=== PATIENT | female | born 2000 | race American Indian/Alaskan Native ===

== ENCOUNTER 2021-12-20 04:28 | Emergency (ER) | payer SELFPAY ==
[2021-12-20 04:55] VITALS: BP 127/79
[2021-12-20] MEDS ORDERED: ERYTHROMYCIN 5 MG/1 GM OPHTH OINT OU ONE (06:09)
[2021-12-20] MEDS ORDERED: MINERAL OIL Light (Sterile) 10 ML VIAL TP ONE (06:09)
--- NOTE | 2021-12-20 06:22 | Emergency Department Report ---
ED Eye Problem HPI - General Chief complaint: Eye Problems Stated complaint: ALLERGIC REACTION TO EYELASH GLUE Time Seen by Provider: 12/20/21 06:08 Source: patient Mode of arrival: Ambulatory Limitations: No Limitations - History of Present Illness Initial comments: Patient presents with bilateral eye irritation after having fake eyelash extensions applied. She had these applied several days ago. Her eyes have become red and itchy. They have been swollen. They have been draining a thick yellowish material. She is complaining of bilateral eye pain. Patient has no blurry vision or double vision. She is no cough or congestion. There is no shortness of breath. She is never had symptoms like this before. She has never had fake eyelashes before. Patient has no other complaint. She has no other trauma. She has not been on any medication to help her symptoms. She tried using some baby oil to dissolve the glue. This did not work. - Related Data Previous Rx's Medication Instructions Recorded Last Taken Type Erythromycin [Erythromycin Ophth 2 cm OU QID #3.5 tube 12/20/21 Unknown Rx Oint] Ibuprofen [Motrin] 600 mg PO Q8H PRN #20 tab 12/20/21 Unknown Rx Allergies Allergy/AdvReac Type Severity Reaction Status Date / Time No Known Allergies Allergy Verified 12/20/21 04:54 ED Review of Systems ROS: Stated complaint: ALLERGIC REACTION TO EYELASH GLUE Other details as noted in HPI Comment: All other systems reviewed and negative Constitutional: denies: fever Eyes: as per HPI ENT: denies: ear pain Respiratory: denies: cough Cardiovascular: denies: chest pain Endocrine: denies: unexplained weight loss Gastrointestinal: denies: vomiting Genitourinary: denies: dysuria Musculoskeletal: denies: back pain Skin: denies: rash Neurological: denies: headache Hematological/Lymphatic: denies: easy bruising ED Past Medical Hx - Past Medical History Previous Medical History?: No - Family History Family history: no significant - Social History Smoking Status: Never Smoker Substance Use Type: None - Medications Home Medications: Home Medications Medication Instructions Recorded Confirmed Last Taken Type Erythromycin [Erythromycin Ophth 2 cm OU QID #3.5 tube 12/20/21 Unknown Rx Oint] Ibuprofen [Motrin] 600 mg PO Q8H PRN #20 tab 12/20/21 Unknown Rx ED Physical Exam - General Limitations: No Limitations, Other (Pulse ox noted and normal) General appearance: alert, in no apparent distress - Head Head exam: Present: atraumatic, normocephalic - Eye Eye exam: Present: EOMI, conjunctival injection (Bilateral), periorbital swelling (Bilateral lid edema), other (Erythema involving both upper eyelids). Absent: scleral icterus - ENT ENT exam: Present: normal orophraynx, normal external ear exam - Neck Neck exam: Present: normal inspection - Respiratory Respiratory exam: Absent: respiratory distress - Cardiovascular Cardiovascular Exam: Absent: JVD - Extremities Exam Extremities exam: Present: normal capillary refill - Back Exam Back exam: Present: full ROM - Neurological Exam Neurological exam: Present: alert, oriented X3, normal gait - Psychiatric Psychiatric exam: Present: normal affect, normal mood - Skin Skin exam: Present: warm, dry ED Course Vital Signs 12/20/21 04:54 Temperature 98.2 F Pulse Rate 62 Respiratory 18 Rate Blood Pressure 127/79 [Right] O2 Sat by Pulse 98 Oximetry - Reevaluation(s) Reevaluation #1: 12/20/21 06:37 Mineral oil was used to remove the fake eyelashes. Erythromycin was administered. Patient was discharged. ED Medical Decision Making - Medical Decision Making Patient presents with bilateral eye irritation and blepharitis related to her eyelash extensions. Patient does not have evidence of systemic allergic reaction. She does not have evidence of a systemic cellulitis or infectious process. She is not febrile or tachycardic. She has been treated symptomatically. The extensions have been removed with with mineral oil. She has been given erythromycin ointment. Critical Care Time: No Critical care attestation.: If time is entered above; I have spent that time in minutes in the direct care of this critically ill patient, excluding procedure time. ED Disposition Clinical Impression: Blepharitis of both eyes Qualifiers: Blepharitis type: unspecified type Eyelid: upper Qualified Code(s): H01.001 - Unspecified blepharitis right upper eyelid Disposition: 01 HOME / SELF CARE / HOMELESS Is pt being admited?: No Condition: Stable Instructions: Blepharitis Additional Instructions: USE WARM COMPRESSES. USE THE ANTIBIOTICS. RETURN FOR PROBLEMS. SEE YOUR DOCTOR OR THE REFERRAL DOCTOR FOR RECHECK. SEE ANY UX LEAD OR EYE DOCTOR FOR RECHECK. Prescriptions: Erythromycin [Erythromycin Ophth Oint] 2 cm OU QID #3.5 tube Ibuprofen [Motrin] 600 mg PO Q8H PRN #20 tab PRN Reason: Pain, Moderate (4-6) Referrals: PRIMARY CARE, [Referring] - 3-5 Days
== END 2021-12-20 07:15 | disposition home or self-care (01) ==
LOC: ED 04:28
DX: H01.001 Unspecified blepharitis right upper eyelid (principal)
CPT/HCPCS: 99283